=== PATIENT | male | born 1995 ===

== ENCOUNTER → 2024-11-08 | Outpatient (REF) | payer SELFPAY ==
[2024-11-08 13:21] LABS: SEMEN APPEARANCE OPAQUE (OPAQUE); SEMEN VISCOSITY LIQUID (LIQUID); SEMEN VOLUME 2.3 ml (2.0-5.0); SPERM CONCENTRATION 140.5 M/ml (>=15.0); WBC CONCENTRATION <=1 M/ml (<=1 M/ml)
[2024-11-08 13:22] LABS: TOTAL PROGRESSIVE SPERM 64.5 M/Ejac.
== END ==
LOC: M LAB REF 13:12
PROVIDERS: ATTEND Nurse Practitioner Family
DX: N46.9 Male infertility, unspecified (principal)